=== PATIENT | male | born 1980 | race Caucasian/White ===

== ENCOUNTER → 2020-05-08 | Outpatient (CLI) | payer OTHER ==
[~2020-05-08] MED LIST: OMEP40CA45 PO
== END | disposition home or self-care (01) ==
LOC: LAB 14:59
PROVIDERS: ATTEND Internal Medicine Gastroenterology
DX: Z11.59 Encounter for screening for other viral diseases (principal)
CPT/HCPCS: U0003-CS

== ENCOUNTER → 2020-05-14 | Day surgery (SDC) | payer OTHER ==
[~2020-05-14] MED LIST changes: +IV RINGERS,LACTATED 1000ML 1,000 ML IV ONE; +LIDOCAINE 2% PF 5 ML VIAL. ONE; +PROPOFOL 10 MG/ML (20ML) VIAL. IV ONE; +ePHEDrine PF IN SALINE 50 MG/10 ML SYRINGE. IV ONE
[2020-05-14 09:20] VITALS: BP 124/77
--- NOTE | 2020-05-14 10:04 | CONS ---
DATE OF CONSULTATION: 05/14/2020 REFERRING PHYSICIAN: Richmond Davis MD REASON FOR CONSULTATION: Dysphagia and reflux. HISTORY OF PRESENT ILLNESS: A 40-year-old male with past medical history significant for high blood pressure, hyperlipidemia and reflux, is seen with continued symptoms, which are intermittent in nature. He does have infrequent impactions of solids. Weight and appetite are stable. There is no family history of esophageal disease and he has otherwise been in good health and has no additional complaints. PAST MEDICAL HISTORY: Hypertension, GERD, hyperlipidemia. ALLERGIES: None. MEDICATIONS: Omeprazole 40 mg daily. FAMILY HISTORY: Significant for heart attacks with father and grandfather. SOCIAL HISTORY: Nonsmoker, nondrinker. Does use caffeine. PAST SURGICAL HISTORY: Noncontributory. REVIEW OF SYSTEMS: Per records. PHYSICAL EXAMINATION: GENERAL: Reveals a well-nourished, well-developed male who is alert, cooperative, in no acute distress. VITAL SIGNS: Temperature is 97.3, pulse 69, respirations 20. LUNGS: Clear. CARDIOVASCULAR: Reveals an S1, S2 without S3, S4 or appreciable murmur. ABDOMEN: Reveals a soft abdomen. Normal bowel sounds, without appreciable hepatosplenomegaly. IMPRESSION AND PLAN: Dysphagia with gastroesophageal reflux disease. Differential includes Mcpherson's, peptic stricture, malignancy, achalasia, eosinophilic esophagitis and/or Schatzki's ring. Therefore, recommend upper endoscopy, possible biopsy and dilatation. Risks and benefits of procedure including risk of hemorrhage and perforation during the operation were discussed. The patient is willing to proceed. MARCIA FREY MD DR: MANUEL/bryson JOB#: [id number] / [id number]
--- NOTE | 2020-05-15 15:08 | PATHOLOGY ---
[facility] Accession Number: [id number] . 01 Material submitted: . esophagus - DISTAL ESOPHAGUS BIOPSY. Modifiers: distal . 01 Clinical history: . GERD, dysphagia . 02 Diagnosis: Esophagus, "distal" endoscopic biopsy: - Esophageal squamous mucosa with basal hyperplasia and markedly increased number of intraepithelial eosinophils (approximately 50-60 eosinophils/hpf). - Negative for intestinal metaplasia, dysplasia, and malignancy. - Please see comment. (SHANTHI:romelia; 05/15/2020) Fran 05/15/2020 1457 Local . 02 Comment: Although not entirely specific, the esophageal biopsy does show features suggestive of eosinophilic esophagitis. Other less likely diagnostic options include gastroesophageal reflux and proton pump inhibitor-responsive esophageal eosinophilia. Clinical correlation is suggested. (SHANTHI:romelia; 05/15/2020) . 02 Electronically signed: . Maximilian Torres MD, Pathologist NPI- [id number] . 01 Gross description: . The specimen is received in formalin, labeled "Maurice Kai, distal esophagus biopsy rule out eosinophilic esophagitis" and consists of multiple fragments of white-way tissue measuring 0.6 x 0.2 x 0.2 cm in aggregate which are entirely submitted in A1. (JMF; 05/14/2020) JFQ/JFQ 05/14/2020 1735 Local . 02 Pathologist provided ICD-10: K21.0, R13.10 . 02 CPT . 141861 Specimen Comment: A courtesy copy of this report has been sent to [phone], [phone] Specimen Comment: [id number] Specimen Comment: Report sent to / DR ARIZA Performed at: [address], [place] [id number] MD Yon Wallis MD Phone: [phone] Performed at: [address] [id number] MD Vu Colorado MD Phone: [phone]
== END | disposition home or self-care (01) ==
LOC: ENDOS 07:49
PROVIDERS: ATTEND Internal Medicine Gastroenterology
DX: K21.0 Gastro-esophageal reflux disease with esophagitis (principal); I10 Essential (primary) hypertension; E78.5 Hyperlipidemia, unspecified; K22.2 Esophageal obstruction; K29.70 Gastritis, unspecified, without bleeding; K22.0 Achalasia of cardia; Z79.899 Other long term (current) drug therapy
CPT/HCPCS: 43239; 43450; J2704; 88305